=== PATIENT | female | born 2000 | race African-American/Black ===

== ENCOUNTER 2019-12-22 23:26 | Emergency (ER) | payer OTHER ==
[~2019-12-22] VITALS: Ht 167.6 cm; Wt 68.2 kg
[2019-12-22] MEDS ORDERED: B-12100021 PO (23:33)
[2019-12-22] MEDS ORDERED: TRAZ-252 PO (23:33)
[2019-12-22] MEDS ORDERED: CVS-161 PO (23:33)
[2019-12-23] MEDS ORDERED: metroNIDAZOLE (FLAGYL) 500 MG TAB PO ONE (01:45)
[2019-12-23] MEDS ORDERED: cefTRIAXone SOD 250MG VIAL (J0696 PER 250MG) IM ONE (01:45)
[2019-12-23] MEDS ORDERED: LIDOCAINE 1% SDV 5ML VIAL DILUENT ONE (01:45)
[2019-12-23] MEDS ORDERED: AZITHROMYCIN 250MG TABLET PO ONE (01:45)
[2019-12-23] MEDS ORDERED: valACYclovir HCL 500 MG TAB PO ONE (01:45)
[2019-12-23] MEDS ORDERED: NORCO 5/325MG TABLET (BULK FOR ED) PO ONE (01:45)
[2019-12-23] MEDS ORDERED: FLAG500T PO (02:21)
[2019-12-23 02:27] VITALS: BP 147/87
[2019-12-23] MEDS ORDERED: VALT1TAB PO (02:41)
[2019-12-23 02:43] LABS: CHLAMYDIA DNA AMPLIFICATION POSITIVE (NEGATIVE); GC DNA AMPLIFICATION NEGATIVE (NEGATIVE)
[2019-12-24] MEDS ORDERED: LIDO5OIN19 TOP (06:38)
[2019-12-24 10:14] LABS: HIV 1&2 SCREEN CENTAUR NEGATIVE (NEGATIVE)
== END 2019-12-23 02:37 | disposition home or self-care (01) ==
LOC: M ED 23:26
DX: N90.89 Other specified noninflammatory disorders of vulva and perineum (principal); N76.0 Acute vaginitis; B96.89 Other specified bacterial agents as the cause of diseases classified elsewhere
CPT/HCPCS: 84702; 86780; 87210; 87389; 87491; 87591; 96374; 99283; J0696

== ENCOUNTER 2019-12-24 05:44 | Emergency (ER) | payer OTHER ==
[~2019-12-24] VITALS: Ht 167.6 cm; Wt 79.6 kg
[~2019-12-24 05:44] MED LIST: B-12100021 PO; CVS-161 PO; FLAG500T PO; TRAZ-252 PO; VALT1TAB PO
[2019-12-24] MEDS ORDERED: KETOROLAC 60MG 2ML VIAL IM ONE (06:15)
[2019-12-24] MEDS ORDERED: LIDO5OIN19 TOP (06:38)
[2019-12-24 07:23] VITALS: BP 126/72
== END 2019-12-24 07:25 | disposition home or self-care (01) ==
LOC: M ED 05:44
DX: N90.89 Other specified noninflammatory disorders of vulva and perineum (principal); Z79.899 Other long term (current) drug therapy
CPT/HCPCS: 99283; J1885

== ENCOUNTER 2020-03-31 15:04 | Inpatient (IN) | payer OTHER ==
[~2020-03-31] VITALS: Ht 167.6 cm; Wt 76.7 kg
[~2020-03-31 15:04] MED LIST changes: +LIDO5OIN19 TOP
[2020-03-31 15:47] LABS: HEMATOCRIT 42.5 % (36.0-47.0); HEMOGLOBIN 13.4 g/dl (12.0-15.5); MEAN CORPUSCULAR HEMOGLOBIN 26.5 pg (27.0-33.0); MEAN CORPUSCULAR HGB CONC 31.5 g/dl (32.0-36.5); PLATELET COUNT, AUTOMATED 324 10^3/uL (150-450); RED BLOOD COUNT 5.06 10^6/uL (4.00-5.40); WHITE BLOOD COUNT 5.3 10^3/uL (4.0-10.0)
[2020-03-31] MEDS ORDERED: REME15TA PO (16:12)
[2020-03-31] MEDS ORDERED: FLUO20CA22 PO (16:12)
[2020-03-31 16:21] LABS: HCG, SERUM QUALITATIVE NEGATIVE (NEGATIVE)
[2020-03-31 16:23] LABS: AMPHETAMINES LEVEL URINE NEGATIVE (NEGATIVE); BARBITURATES URINE NEGATIVE (NEGATIVE); BENZODIAZEPINES URINE NEGATIVE (NEGATIVE); CANNABINOIDS URINE POSITIVE (NEGATIVE); COCAINE METABOLITE URINE NEGATIVE (NEGATIVE); METHADONE URINE NEGATIVE (NEGATIVE); OPIATES URINE NEGATIVE (NEGATIVE); PHENCYCLIDINE URINE NEGATIVE (NEGATIVE)
[2020-03-31 16:34] LABS: ACETAMINOPHEN LEVEL < 2.0 UG/ML (10.0-30.0); ALBUMIN 4.1 GM/DL (3.2-5.2); ALT/SGPT 33 U/L (12-78); BILIRUBIN,DIRECT 0.2 MG/DL (0.0-0.2); BILIRUBIN,TOTAL 0.2 MG/DL (0.2-1.0); BLOOD UREA NITROGEN 9 MG/DL (7-18); CALCIUM LEVEL 9.1 MG/DL (8.5-10.1); CARBON DIOXIDE LEVEL 29 MEQ/L (21-32); CHLORIDE LEVEL 105 MEQ/L (98-107); CREATININE FOR GFR 0.92 MG/DL (0.55-1.30); ETHYL ALCOHOL (ETHANOL) < 0.003 % (0.000-0.010); GLOMERULAR FILTRATION RATE > 60.0 (>60); GLUCOSE, FASTING 85 MG/DL (70-100); POTASSIUM SERUM 3.7 MEQ/L (3.5-5.1); SALICYLATE LEVEL 2.2 MG/DL (5.0-30.0); SODIUM LEVEL 136 MEQ/L (136-145); THYROID STIMULATING HORMONE 0.762 uIU/ML (0.358-3.740); TOTAL PROTEIN 8.2 GM/DL (6.4-8.2)
[2020-03-31] MEDS ORDERED: MAALOX 30 ML SUSP *UDC PO PRN (22:15)
[2020-03-31] MEDS ORDERED: MOM 30ML SUSPENSION UDC PO PRN (22:15)
[2020-03-31] MEDS ORDERED: MIRTAZAPINE 15 MG TAB PO PRN (22:15)
[2020-03-31] MEDS ORDERED: traZODone 50 MG TAB PO PRN (22:15)
[2020-03-31] MEDS ORDERED: ACETAMINOPHEN TAB 650MG DOSE (2X325MG) PO PRN (22:15)
[2020-04-01 00:02] VITALS: BP 142/80
[2020-04-01 06:49] VITALS: BP 120/80
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
[2020-04-01] MEDS: FLUoxetine 20 MG CAP PO SCH (10:14)
[2020-04-01 16:21] VITALS: BP 137/72
--- NOTE | 2020-04-01 16:43 | HPEPDOC ---
[facility] Medical History & Physical Date of Admission Apr 01, 2020 Date of Service: Apr 01, 2020 History and Physical CHIEF COMPLAINT: Anxiety HISTORY OF PRESENT ILLNESS: Patient is a 20 year old female here at [facility] for anxiety and depression. She tells me that she has had anxiety since she returned from [place] about a year ago. Anxiety is associated with shortness of breath, but no other symptoms. Her dyspnea has been unchanged. She is here in the [facility] for observation for suicide. While at work, she felt unsafe being around a coworker and she when to [facility] to speak with someone. They asked her if she was suicidal of which she said no. They asked if she had a plan, she said if she had pills she would overdose, but she said she would not kill herself. PAST MEDICAL/SURGICAL HISTORY: 1. Anxiety/Depression 2. Insomnia SOCIAL HISTORY: Denies smoking cigarettes, but smoked weed. She quit smoking weed a few months ago. Smoked for about 2 months before quitting. Drinks occasionally Denies any other recreational drugs FAMILY HISTORY: Adopted, to her knowledge, no known medical history of biological parents ALLERGIES: Please see below. REVIEW OF SYSTEMS: CONSTITUTIONAL: No fever or chills HEENT: No changes in vision, no dysphagia, no sore throat CARDIOVASCULAR: No chest pain RESPIRATORY: Reports chronic SOB that has not worsened GASTROINTESTINAL: No abdominal pain, no diarrhea, no constipation GENITOURINARY: No dysuria SKIN: No rashes NEUROLOGICAL: No paresthesias PSYCHIATRIC: Anxiety HOME MEDICATIONS: Please see below. PHYSICAL EXAMINATION: VITAL SIGNS: Temperature 97.3, pulse 65, respiratory rate 12, blood pressure 120/80, pulse oximetry 96% on room air. GENERAL APPEARANCE: Comfortable, in no apparent distress HEENT: Head normocephalic, atraumatic, EOMI, pupils equal round, sclera clear CARDIOVASCULAR: Regular rate and rhythm LUNGS: Lungs clear to auscultation, no rales, wheeze, or rhonchi ABDOMEN: Soft, non-tender, normal bowel sounds MUSCULOSKELETAL: Muscle strength 5/5 and equal bilaterally EXTREMITIES: Mild pitting edema bilaterally NEUROLOGICAL: CN 3-12 grossly intact PSYCHIATRIC: Appears anxious LABORATORY DATA: See below. MICROBIOLOGY: Please see below. ASSESSMENT: Patient is a 20 year old female here in [facility] for observation for commenting about overdosing on pills if they were available to her. From a medical standpoint, she appears healthy. She has concerns about hypertension and diastolic hypertension of which I recommended to obtain a blood pressure cuff and monitor her blood pressure at different parts of the day. Also recommended that she follows up with her primary care provider to help her distinguish hypertension from anxiety and essential hypertension. . PLAN: 1. Anxiety. Currently on fluoxetine and mirtazapine. Being monitored in [facility] for suicidal comment. 2. Wellness. She is concerned about hypertension. Recommended monitoring her blood pressure outpatient and following up with her PCP. Vital Signs Vital Signs Date Time Temp Pulse Resp B/P (MAP) Pulse Ox O2 Delivery O2 Flow Rate FiO2 04/01/20 06:49 97.3 65 12 120/80 (93) Room Air 04/01/20 00:02 96 Home Medications Scheduled Fluoxetine Hcl (Fluoxetine HCl) 20 Mg Capsule, 20 MG PO DAILY Scheduled PRN Mirtazapine (Remeron) 15 Mg Tablet, 7.5 MG PO QHS PRN for SLEEP Allergies Coded Allergies: No Known Allergies (Unverified , 12/22/19) A-FIB/CHADSVASC A-FIB History Current/History of A-Fib/PAF?: No DARRIUS BENSON DO Apr 01, 2020 16:43
[2020-04-02 07:02] VITALS: BP 141/83
[2020-04-02] MEDS: FLUoxetine 20 MG CAP PO SCH (09:49)
--- NOTE | 2020-04-02 10:43 | MHDSPDOC ---
[facility] Discharge Summary Discharge Summary DATE OF ADMISSION: Mar 31, 2020 at 22:12 DATE OF DISCHARGE:Apr 02, 2020 at 12:45 DISCHARGE DIAGNOSES: F43.24 Adjustment disorder with disturbance of conduct CONSULTANTS INVOLVED:[ None (basic hospitalist screening)] REASON FOR ADMISSION & TREATMENT AND PROGRESS ON THE UNIT : The patient was admitted to the inpatient mental health unit after reportedly making some concerning statements to a therapist. She was admitted on abundance of caution and observed. Resumed on Fluoxetine with omission of Mirtazapine. She did well and demonstrated no concerning behavior. 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 Showed no concerning behavior ideation. DISCHARGE ASSESSMENT[improved] Legal status considerations: The patient at the time of discharge did not meet criteria for involuntary ad mission/extension due to having a [normal] mental status exam, [fair] insight into the situation, They are engaged in the discharge process, as well as being friendly and amenable in behavioral control and havent been engaging in any observed concerning behavior or ideation recently. They decline voluntary extension/admission at this time and must be discharged in good janny, as Im unable to make a case for holding the patient against their will. They may have historical risk factors of admissions and other interactions with psychiatry however, those are not modifiable from a clinical perspective. The patient will need to be discharged in good janny. MENTAL STATUS EXAMINATION ON DISCHARGE: [General: Well dressed with good hygiene Speech: Spontaneous and fluid Thought processes: Linear and logical Thought content: Future orientated Abstract reasoning, and computation: Intact Description of associations: Intact Description of abnormal or psychotic thoughts:Denies any suicidal or homicidal ideation. Denies any auditory or visual hallucinations. Does not appear to be responding to internal stimuli. Does not appear to be endorsing any bizarre or paranoid ideation. Judgment: fair Insight: fair Orientation: Alert and orientated 3 Recent and remote memory: Intact Attention span and concentration: Intact Fund of knowledge: Adequate Mood: "okay" Affect: Euthymic with a full range] PLAN/FOLLOWUP ARRANGEMENTS: Follow up appointments made (PCP and MH in 5 days of D/C date) and safety plan completed. Safety Planning aspects completed prior to discharge [DOD: Weapons Profile 30 days] [Medication supplies limited to 7 days with 4 refills to prevent accumulation to OD] [RN reviewed crisis hotline information and other aspects to empower patient to access care in interim before next appointment.] The amount of time spent in the coordination of care for this patient was approximately 30 minutes. Vital Signs/I&Os Vital Signs Date Time Temp Pulse Resp B/P (MAP) Pulse Ox O2 Delivery O2 Flow Rate FiO2 04/02/20 07:02 98.4 79 16 141/83 (102) Room Air 04/01/20 00:02 96 Medications Scheduled Fluoxetine Hcl (Fluoxetine HCl) 20 Mg Capsule, 20 MG PO DAILY for mood for 7 Day s, #7 Scheduled PRN Mirtazapine (Remeron) 15 Mg Tablet, 7.5 MG PO QHS PRN for SLEEP for 7 Days, #5 Allergies Coded Allergies: No Known Allergies (Unverified , 12/22/19) BRETT LE DO Apr 02, 2020 10:43
[2020-04-02] MEDS ORDERED: REME15TA PO (11:24)
[2020-04-02] MEDS ORDERED: FLUO20CA22 PO (11:24)
== END 2020-04-02 12:45 | disposition home or self-care (01) | DRG 882 ==
LOC: M ED 15:04 → M ED INP 22:12 → M PSY 23:40
PROVIDERS: ADMIT Psychiatry & Neurology Psychiatry; ATTEND Psychiatry & Neurology Addiction Medicine
DX: F43.24 Adjustment disorder with disturbance of conduct (principal); Z79.899 Other long term (current) drug therapy; G47.00 Insomnia, unspecified; F41.9 Anxiety disorder, unspecified

== ENCOUNTER 2020-04-20 11:27 | Emergency (ER) | payer OTHER ==
[~2020-04-20] VITALS: Ht 167.6 cm; Wt 78.8 kg
[~2020-04-20 11:27] MED LIST changes: +FLUO20CA22 PO; +REME15TA PO
[2020-04-20] MEDS ORDERED: vit b12 (11:33)
[2020-04-20] MEDS ORDERED: KETOROLAC 30 MG/ML 1ML VIAL IV ONE (12:30)
[2020-04-20] MEDS ORDERED: NS 1,000 ML IV ONE (12:30)
[2020-04-20] MEDS ORDERED: ACETAMINOPHEN 500 MG TAB PO ONE (12:30)
[2020-04-20] MEDS ORDERED: ONDANSETRON 4MG/2ML VIAL IV ONE (12:30)
[2020-04-20 12:53] LABS: BASO % 0.3 % (0.0-1.0); EOS # 0.1 10^3/uL (0.0-0.5); EOS % 1.9 % (0.0-3.0); HEMATOCRIT 43.5 % (36.0-47.0); HEMOGLOBIN 13.7 g/dl (12.0-15.5); MEAN CORPUSCULAR HGB CONC 31.5 g/dl (32.0-36.5); MEAN CORPUSCULAR VOLUME 82.5 fl (80.0-96.0); MONO # 0.5 10^3/uL (0.0-0.8); MONO % 8.5 % (0.0-5.0); NEUTROPHILS # 3.2 10^3/uL (1.5-8.5); PLATELET COUNT, AUTOMATED 368 10^3/uL (150-450); RED BLOOD COUNT 5.27 10^6/uL (4.00-5.40); WHITE BLOOD COUNT 5.9 10^3/uL (4.0-10.0)
[2020-04-20 14:27] LABS: AMPHETAMINES LEVEL URINE NEGATIVE (NEGATIVE); BARBITURATES URINE NEGATIVE (NEGATIVE); BENZODIAZEPINES URINE NEGATIVE (NEGATIVE); CANNABINOIDS URINE POSITIVE (NEGATIVE); COCAINE METABOLITE URINE NEGATIVE (NEGATIVE); METHADONE URINE NEGATIVE (NEGATIVE); OPIATES URINE NEGATIVE (NEGATIVE); PHENCYCLIDINE URINE NEGATIVE (NEGATIVE)
[2020-04-20] MEDS ORDERED: ONDA4TAB6 PO (15:40)
[2020-04-20 15:59] VITALS: BP 139/84
[2020-04-20 16:18] LABS: ALBUMIN 4.1 GM/DL (3.2-5.2); ALT/SGPT 33 U/L (12-78); BILIRUBIN,DIRECT < 0.1 MG/DL (0.0-0.2); BILIRUBIN,TOTAL 0.3 MG/DL (0.2-1.0); HEPATITIS B SURFACE ANTIBODY POSITIVE (POSITIVE); HEPATITIS B SURFACE ANTIGEN NEGATIVE (NEGATIVE); HEPATITIS C VIRUS ABY INDEX 0.2 INDEX (<0.8); HIV 1&2 SCREEN CENTAUR NEGATIVE (NEGATIVE); LIPASE 92 U/L (73-393)
== END 2020-04-20 16:07 | disposition home or self-care (01) ==
LOC: M ED 11:27
DX: R51 Headache (principal); R11.0 Nausea; F12.188 Cannabis abuse with other cannabis-induced disorder; F41.9 Anxiety disorder, unspecified; F32.9 Major depressive disorder, single episode, unspecified; F17.200 Nicotine dependence, unspecified, uncomplicated; Z79.899 Other long term (current) drug therapy
CPT/HCPCS: 80047; 80076; 80307; 81001; 83690; 84702; 85025; 86706; 86780; 86803; 87340; 87389; 87490; 87590; 87661; 96361; 96374; 96375; 99284; J1885; J2405